=== PATIENT | male | born 2005 | race Caucasian/White ===

== ENCOUNTER 2023-05-29 16:32 | Emergency (ER) | payer OTHER ==
--- NOTE | 2023-05-29 18:30 | ED Physician Documentation ---
History of Present Illness - Stated complaint Stated Complaint: RASH,EYE PX - Chief complaint Chief Complaint: General - History obtained from History obtained from: Patient - History of Present Illness Pain level max: 0 Pain level now: 0 - Additonal information Additional information: 18-year-old male, active [employer] presents to the emergency department stating he has had a circular rash on the left wrist and lower abdomen for the past several months. He states he was placed on a cream by his doctor but does not know what it was. He states he has also noticed that his right eye has been red for the past 3 days with a slight yellow drainage. He is concerned about a fungal infection. No fevers. No chills. No abdominal pain. No cough. No difficulty breathing. The rash is slightly itchy. Does not wear contacts. Review of Systems Constitutional: denies: Fever, Chills Ears: denies: Ear pain Nose: denies: Rhinorrhea / runny nose, Congestion Throat: denies: Sore throat Cardiac: denies: Palpitations Respiratory: denies: Dyspnea, Cough GI: denies: Vomiting Musculoskeletal: denies: Neck pain, Back pain Neurologic: denies: Headache PD PAST MEDICAL HISTORY - Past Medical History Past Medical History: No - Past Surgical History Past Surgical History: No - Present Medications Home Medications: Ambulatory Orders Medication Instructions Recorded Confirmed Polymyxin B/Trimeth Ophth Drop 1 drops EACHEYE Q3H 7 Days #1 each 05/29/23 [Polytrim Ophth Drops] Terbinafine [Lamisil] 250 mg PO DAILY #28 tablet 05/29/23 - Allergies Allergies/Adverse Reactions: Allergies Allergy/AdvReac Type Severity Reaction Status Date / Time No Known Drug Allergies Allergy Verified 05/29/23 16:45 - Social History Does the pt smoke?: No Smoking Status: Never smoker PD ED PE NORMAL - Vitals Vital signs reviewed: Yes - General General: Alert and oriented X 3, No acute distress - HEENT HEENT: Moist mucous membranes, Other (Mild conjunctival injection of the right eye, mild yellow drainage. Left eye is normal.) - Neck Neck: Supple, no meningeal sign - Cardiac Cardiac: RRR - Respiratory Respiratory: No respiratory distress, Clear bilaterally - Abdomen Abdomen: Soft, Non tender, Non distended - Derm Derm: Warm and dry, Other (2 patches of erythematous circular areas with mild central clearing. No heaped edges. 1 small patch to the left wrist, 1 patch on the lower abdomen of darkened skin, mildly erythematous, no heaped edges. Circular in nature. Mild central clearing) - Neuro Neuro: Alert and oriented X 3 Results - Vitals Vitals: Vital Signs - 24 hr 05/29/23 05/29/23 16:36 18:40 Temperature 36.9 C Heart Rate 77 80 Respiratory 16 16 Rate Blood Pressure 140/70 H 129/89 H O2 Saturation 97 96 Oxygen O2 Source Room air PD Medical Decision Making - ED course Complexity details: reviewed results, re-evaluated patient, considered differential, d/w patient ED course: Patient with tinea corporis versus tinea versicolor. We will place on terbin afine. Also appears to have a right eye conjunctivitis, placed on Polytrim ophthalmic. Does not wear contacts. We will have the patient follow-up with his PCP for further care. Denies any history of liver problems or liver disease. Recommend he have his liver function test checked with his doctor in about 2 weeks. Patient counseled regarding signs and symptoms for which I believe and urgent re-evaluation would be necessary. Patient with good understanding of and agreement to plan and is comfortable going home at this time This document was made in part using voice recognition software. While efforts are made to proofread this document, sound alike and grammatical errors may occur. Departure - Departure Disposition: 01 Home, Self Care Clinical Impression: Tinea corporis Conjunctivitis Qualifiers: Conjunctivitis type: acute Acute conjunctivitis type: bacterial Laterality: right Qualified Code(s): H10.31 - Unspecified acute conjunctivitis, right eye Condition: Good Instructions: ED Conjunctivitis Bacterial, ED Ringworm Infec Fungal Follow-Up: DIANA PRO DO [Primary Care Provider] - Prescriptions: Terbinafine [Lamisil] 250 mg PO DAILY #28 tablet Polymyxin B/Trimeth Ophth Drop [Polytrim Ophth Drops] 1 drops EACHEYE Q3H 7 Days #1 each Comments: Please follow-up with your doctor for further care. They will want to check your liver function tests in about 2 weeks as the antifungal and can be hard on your liver. Please take the medication until gone. Please return if you worsen. Your prescriptions were sent to the [facility] pharmacy. Forms: PCP List Discharge Date/Time: 05/29/23 18:47
[2023-05-29 18:48] VITALS: BP 129/89
== END 2023-05-29 18:47 | disposition home or self-care (01) ==
LOC: ED 16:32
DX: B35.4 Tinea corporis (principal); H10.31 Unspecified acute conjunctivitis, right eye
CPT/HCPCS: 99281; 99283

== ENCOUNTER 2023-07-15 17:36 | Emergency (ER) | payer OTHER ==
--- NOTE | 2023-07-15 17:58 | ED Physician Documentation ---
PD HPI LOWER EXT INJURY - Stated complaint Stated Complaint: R FOOT PX - Chief complaint Chief Complaint: Trauma Ext - History obtained from History obtained from: Patient (Lifting weights a few days ago and started develop indolent pain over the next couple of days over the dorsum of the right foot. He notes a swollen tender area basically kind of near the second and third metatarsal heads and difficulty walking due to same. No specific injury.) PD PAST MEDICAL HISTORY - Past Surgical History Past Surgical History: No - Present Medications Home Medications: Ambulatory Orders Medication Instructions Recorded Confirmed No Known Home Medications 07/15/23 07/15/23 - Allergies Allergies/Adverse Reactions: Allergies Allergy/AdvReac Type Severity Reaction Status Date / Time No Known Drug Allergies Allergy Verified 05/29/23 16:45 - Social History Does the pt smoke?: No Smoking Status: Never smoker PD ED PE NORMAL - Vitals Vital signs reviewed: Yes - General General: Alert and oriented X 3, No acute distress - Extremities Extremities: Other (Mild tenderness of the second and third metatarsal heads of the right foot with local dorsal swelling there. No discoloration. No tenderness on the bottom of the foot or to the proximal forefoot.) - Neuro Neuro: Alert and oriented X 3, Normal speech Results - Vitals Vitals: Vital Signs - 24 hr 07/15/23 07/15/23 17:44 18:03 Temperature 36.7 C Heart Rate 76 Respiratory 16 18 Rate Blood Pressure 130/88 H O2 Saturation 98 Oxygen O2 Source Room air Departure - Departure Disposition: 01 Home, Self Care Clinical Impression: Right foot strain Qualifiers: Encounter type: initial encounter Qualified Code(s): S96.911A - Strain of unspecified muscle and tendon at ankle and foot level, right foot, initial encounter Condition: Good Record reviewed to determine appropriate education?: Yes Instructions: ED Sprain Foot Comments: Tylenol and/or ibuprofen as needed for pain. Generally take it easy, you can ice it as well. Follow-up with your flight surgeon and return if worse. Forms: Activity restrictions Discharge Date/Time: 07/15/23 18:14
[2023-07-15 18:00] VITALS: BP 130/88; O2SAT 98
--- NOTE | 2023-07-15 18:08 | XRAY Report ---
PROCEDURE: Foot 3 View RT INDICATIONS: injury/pain TECHNIQUE: 3 views of the foot were acquired. COMPARISON: None. FINDINGS: Bones: No fractures or dislocations. No suspicious bony lesions. Soft tissues: No suspicious soft tissue calcifications or masses. IMPRESSION: No acute bony abnormality. Reviewed by: Marques Garcia on 07/15/2023 6:06 PM PDT Approved by: Marques Garcia on 07/15/2023 6:06 PM PDT Station ID: [id number]
== END 2023-07-15 18:14 | disposition home or self-care (01) ==
LOC: ED 17:36
DX: S96.911A Strain of unspecified muscle and tendon at ankle and foot level, right foot, initial encounter (principal); X58.XXXA Exposure to other specified factors, initial encounter; Y93.B3 Activity, free weights
CPT/HCPCS: 99283

== ENCOUNTER 2023-10-01 11:01 | Emergency (ER) | payer OTHER ==
[2023-10-01 11:21] VITALS: BP 135/78; O2SAT 99
--- NOTE | 2023-10-01 12:19 | ED Physician Documentation ---
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 No fever. No chills. No dysuria. No penile discharge. No drainage. No testicular pain. No abdominal pain. Patient also states he is interested in STI testing. 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 - Past Surgical History Past Surgical History: No - Present Medications Home Medications: Ambulatory Orders Medication Instructions Recorded Confirmed Terbinafine HCl [Lamisil At] 1 applic TP BID #1 ea 10/01/23 - Allergies Allergies/Adverse Reactions: Allergies Allergy/AdvReac Type Severity Reaction Status Date / Time No Known Drug Allergies Allergy Verified 10/01/23 11:14 - Social History Does the pt smoke?: No Smoking Status: Never smoker Does the pt drink ETOH?: No Does the pt have substance abuse?: No - Immunizations Immunizations are current?: Yes - POLST Patient has POLST: No PD ED PE NORMAL - Vitals Vital signs reviewed: Yes - General General: Alert and oriented X 3, No acute distress - HEENT HEENT: Moist mucous membranes - Neck Neck: Supple, no meningeal sign - Respiratory Respiratory: No respiratory distress - Abdomen Abdomen: Soft, Non tender, Non distended - Male Male : Other (There is mild erythema to the right scrotum and the right inner thigh. No lymphadenopathy. No penile discharge or drainage.) - Back Back: No CVA TTP, No spinal TTP - Derm Derm: Warm and dry - Neuro Neuro: Alert and oriented X 3 - Psych Psych: Normal mood, Normal affect Results - Vitals Vitals: Vital Signs - 24 hr 10/01/23 11:11 Temperature 35.9 C L Heart Rate 75 Respiratory 16 Rate Blood Pressure 135/78 H O2 Saturation 99 Oxygen O2 Source Room air PD Medical Decision Making - ED course Complexity details: reviewed results, re-evaluated patient, considered differential, d/w patient ED course: 18-year-old male with what appears to be tinea cruris. No evidence of secondary infection. No evidence of cellulitis. No pustules or vesicles. No drainage. Will place on terbinafine. We did discuss STI testing, but patient states that he would like full STI testing done and [place] Therefore he declines any testing today. Patient counseled regarding signs and symptoms for which I believe and urgent re-evaluation would be necessary. Patient with good understanding of and agreement to plan and is comfortable going home at this time This document was made in part using voice recognition software. While efforts are made to proofread this document, sound alike and grammatical errors may occur. Departure - Departure Disposition: Home, Self Care Clinical Impression: Tinea cruris Condition: Good Instructions: ED Jock Itch Infec Fungal Follow-Up: DIANA PRO DO [Primary Care Provider] - Within 1 week Prescriptions: Terbinafine HCl [Lamisil At] 1 applic TP BID #1 ea Comments: Your prescription was sent to [facility] in [place]. Use the cream as instructed topically twice daily for 2 weeks. [place]. Please return if you worsen. Please make sure to keep the area very dry. Make sure to dry thoroughly after showering. Forms: PCP List
== END 2023-10-01 12:48 | disposition home or self-care (01) ==
LOC: ED 11:01
DX: B35.6 Tinea cruris (principal)
CPT/HCPCS: 99282; 99283

== ENCOUNTER 2023-10-05 15:43 | Outpatient (CLI) | payer OTHER ==
--- NOTE | 2023-10-06 10:59 | MRI Report ---
PROCEDURE: FOOT WO - RT INDICATIONS: RIGHT FOOT FX TECHNIQUE: Noncontrast sagittal T1 spin echo and T2 fast spin echo with fat saturation, long-axis T1 spin echo a nd T2 fast spin echo with fat saturation, short-axis proton density fast spin echo and T2 fast spin e cho with fat saturation through the forefoot. COMPARISON: None. FINDINGS: Image quality: Excellent. There are fractures involving the distal diaphysis of the patient's second and third metatarsals. There is associated marrow edema present and reactive changes in the adjacent soft tissues consistent with inflammation. Marrow signal in the remaining visualized bones appears normal. Ligaments and tendons appear intact. No loculated fluid collections or soft tissue masses are seen. M usculature appears within normal limits. IMPRESSION: 1. Fractures involving the distal diaphysis of the second and third metatarsals associated marrow graciela ma present throughout the second and third metatarsal shafts. 2. Associated mild to moderate edematous changes in the surrounding soft tissues primarily over the d orsum of the foot consistent with acute inflammation. Reviewed by: Woody Callejas MD on 10/06/2023 10:58 AM PST Approved by: Woody Callejas MD on 10/06/2023 10:58 AM PST Station ID: [id number]
== END 2023-10-05 15:44 | disposition home or self-care (01) ==
LOC: DI 15:43
PROVIDERS: ATTEND Podiatrist
DX: S92.321A Displaced fracture of second metatarsal bone, right foot, initial encounter for closed fracture (principal); S92.331A Displaced fracture of third metatarsal bone, right foot, initial encounter for closed fracture; R93.6 Abnormal findings on diagnostic imaging of limbs; R93.89 Abnormal findings on diagnostic imaging of other specified body structures

== ENCOUNTER 2024-06-07 06:50 | Emergency (ER) | payer OTHER ==
[2024-06-07 07:10] VITALS: BP 139/78; O2SAT 100
--- NOTE | 2024-06-07 07:36 | ED Physician Documentation ---
History of Present Illness - Stated complaint Stated Complaint: LOW BACK NUMB - Chief complaint Chief Complaint: Trauma Ch/Bk - History obtained from History obtained from: Patient - History of Present Illness Timing: How many weeks ago (1) Pain level max: 4 Pain level now: 4 - Additonal information Additional information: Patient is a 19-year-old male who presents to the emergency department stating that he has low back pain. He states that he was lifting about a week ago and noticed that he had some numbness in his low back. He states that the numbness resolved but then he developed some sharp pains. Those also resolved after few days. Today he was lifting again when he noted numbness again in his back. He is active duty [employer]. [place] States that he has his PRT tomorrow and is concerned about having to do that testing. No loss of bowel or bladder control. No numbness or tingling in the legs. No IV drug use. No fevers. Has not taken anything for the pain. Review of Systems Constitutional: denies: Fever, Chills Respiratory: denies: Cough GI: denies: Vomiting, Diarrhea Skin: denies: Rash PD PAST MEDICAL HISTORY - Past Medical History Past Medical History: No - Past Surgical History Past Surgical History: No - Present Medications Home Medications: Ambulatory Orders Medication Instructions Recorded Confirmed Ibuprofen [Motrin] 800 mg PO Q8H PRN #30 tablet 06/07/24 methylPREDNISolone [Medrol] 4 mg PO DAILY #1 each 06/07/24 - Allergies Allergies/Adverse Reactions: Allergies Allergy/AdvReac Type Severity Reaction Status Date / Time No Known Drug Allergies Allergy Verified 06/07/24 07:00 - Social History Does the pt smoke?: No Smoking Status: Never smoker Does the pt drink ETOH?: No Does the pt have substance abuse?: No - Immunizations Immunizations are current?: Yes - POLST Patient has POLST: No PD ED PE NORMAL - Vitals Vital signs reviewed: Yes - General General: Alert and oriented X 3, No acute distress - HEENT HEENT: Moist mucous membranes - Neck Neck: Supple, no meningeal sign - Cardiac Cardiac: RRR - Respiratory Respiratory: Clear bilaterally - Abdomen Abdomen: Soft, Non tender, Non distended - Back Back: No spinal TTP, Other (No midline tenderness to palpation or percussion. No step-off or deformity.) - Derm Derm: Warm and dry - Extremities Extremities: No edema - Neuro Neuro: Alert and oriented X 3, No motor deficit, No sensory deficit, Other (Normal bilateral lower extremity patellar and ankle jerk reflexes. Normal great toe extension bilaterally. no saddle anesthesia) - Psych Psych: Normal mood, Normal affect Results - Vitals Vitals: Vital Signs - 24 hr 06/07/24 06:50 Temperature 36.7 C Heart Rate 79 Respiratory 18 Rate Blood Pressure 139/78 H O2 Saturation 100 Oxygen O2 Source Room air PD Medical Decision Making - ED course Complexity details: reviewed results, re-evaluated patient, considered differential (No cauda equina, no spinal epidural abscess, no fracture, no aortic dissection or evidence of aneursym rupture), d/w patient ED course: Patient with low back pain after lifting. No evidence of cauda equina, epidural abscess.No fevers. No chills. No IV drug use. No red flags. We will place on steroids and anti-inflammatories for home. Will have [place]. No indication for emergent imaging. Ambulating well. Patient counseled regarding signs and symptoms for which I believe and urgent re-evaluation would be necessary. Patient with good understanding of and agreement to plan and is comfortable going home at this time This document was made in part using voice recognition software. While efforts are made to proofread this document, sound alike and grammatical errors may occur. Departure - Departure Disposition: 01 Home, Self Care Clinical Impression: Low back pain Qualifiers: Chronicity: acute Back pain laterality: bilateral Sciatica presence: without sciatica Qualified Code(s): M54.50 - Low back pain, unspecified Condition: Good Instructions: ED Low Back Pain Injury Follow-Up: your,doctor in 3 days [Other] Prescriptions: methylPREDNISolone [Medrol] 4 mg PO DAILY #1 each Ibuprofen [Motrin] 800 mg PO Q8H PRN #30 tablet PRN Reason: PAIN &/OR FEVER Comments: [place] Your prescriptions were sent to the [facility] pharmacy. This should improve over the next few days. Please return if you worsen. Forms: PCP List, Activity restrictions
== END 2024-06-07 07:41 | disposition home or self-care (01) ==
LOC: ED 06:50
DX: M54.50 Low back pain, unspecified (principal)
CPT/HCPCS: 99282; 99283